=== PATIENT | female | born 1995 | race Caucasian/White ===

== ENCOUNTER 2017-08-17 14:03 | Inpatient (IN) ==
[2017-08-17] MEDS: LACTATED RINGERS 1,000 ML IV SCH ×2 (14:40→23:45)
[2017-08-17] MEDS ORDERED: ONDANSETRON 4 MG/2 ML VIAL IV PRN (15:12)
[2017-08-17] MEDS ORDERED: MEPERIDINE 50 MG/1 ML VIAL IV PRN (15:12)
[2017-08-17] MEDS ORDERED: LACTATED RINGERS 500 ML IV PRN (15:12)
[2017-08-17] MEDS ORDERED: BUTORPHANOL 2 MG/ML VIAL IV PRN (15:12)
[2017-08-17] MEDS ORDERED: OXYTOCIN/LR 20 UNIT/1,000 ML BAG IV SCH (15:30)
[2017-08-17] MEDS: CLINDAMYCIN INJ 900 MG in PREMIX 1 EACH IV SCH ×2 (15:36→23:49)
[2017-08-17 16:23] LABS: Basophils % 0.3 % (0.0-0.8); Eosinophils # 0.1 10*3/uL (0.0-0.87); Eosinophils % 0.7 % (0.00-10.9); Hematocrit 31.8 VOL% (35.7-47.0); Hemoglobin 10.5 GM/DL (12.0-16.0); Immature Granulocytes % 0.7 %; Immature Granulocytes Absolute 0.09 #; Lymphocytes # 1.4 10*3/uL (1.4-4.0); Lymphocytes % 10.6 % (21.3-54.2); Mean Corpuscular Hemoglobin 28 PG (27-34); Mean Corpuscular Volume 83.9 FL (87-102); Monocytes # 1.2 10*3/uL (0.11-0.8); Neutrophils # 10.6 10*3/uL (1.4-7.4); Neutrophils % 78.7 % (38.7-73.9); Platelet Count 142 T/CUMM (130-400); Red Blood Count 3.79 MC/CUMM (3.8-5.5); Red Cell Distribution Width 12.9 % (9.3-17.3); White Blood Count 13.5 T/CUMM (4-12)
[2017-08-17 16:39] LABS: Alanine Aminotransferase 12 U/L (13-56); Albumin 2.7 G/DL (3.4-5.0); Alkaline Phosphatase 158 U/L (45-117); Aspartate Amino Transferase 10 U/L (0-37); Bilirubin,Total < 0.39 MG/DL (0.2-1.0); Blood Urea Nitrogen 7 MG/DL (7-18); Calcium 8.4 MG/DL (8.5-10.1); Glucose 77 MG/DL (74-106); Osmolality,Calculated 269.8 MOS/KG (273-304); Potassium 3.7 MMOL/L (3.5-5.1); Sodium 137 MMOL/L (136-145); Total Protein 6.1 G/DL (6.4-8.3); Uric Acid 5.4 MG/DL (2.6-6.0)
[2017-08-17 19:23] LABS: INR 0.9; PT Patient Result 9.4 SECS; Partial Thromboplastin Time 28.7 SECS (0-40)
[2017-08-18] MEDS: ALUMINUM/MAGNES/SIMETH MAX STR 30 ML UDCUP PO PRN ×2 (00:16→06:51)
[2017-08-18] MEDS: CLINDAMYCIN INJ 900 MG in PREMIX 1 EACH IV SCH ×2 (06:57→19:08)
[2017-08-18] MEDS: LACTATED RINGERS 1,000 ML IV SCH (06:57)
[2017-08-18] MEDS ORDERED: hydrOXYzine HCL 25 MG/1 ML VIAL IM PRN (07:09)
[2017-08-18] MEDS ORDERED: PROMETHAZINE 25 MG/1 ML VIAL IM ONE (07:12)
[2017-08-18] MEDS ORDERED: CITRIC ACID/SODIUM CITRATE 30 ML UDCUP PO ONE (07:12)
[2017-08-18] MEDS ORDERED: FAMOTIDINE 20 MG/2 ML VIAL IV ONE (07:12)
[2017-08-18] MEDS ORDERED: ePHEDrine 50 MG/ML AMP IV PRN (07:13)
[2017-08-18] MEDS ORDERED: diphenhydrAMINE 50 MG/1 ML VIAL IV PRN ×2 (07:13)
[2017-08-18] MEDS ORDERED: fentaNYL 2 MCG/ROPIV 0.2% EPID 150 ML EPIDURAL SCH (07:14)
[2017-08-18] MEDS ORDERED: LACTATED RINGERS 1,000 ML IV ONE (07:14)
[2017-08-18 10:21] LABS: Apearance,Urine Slightly Hazy (Clear); Bilirubin,Urine Negative (Negative); Blood, Urine Small mg/dL (Negative); Glucose,Urine (UA) Negative (Negative); Ketones,Urine Negative (Negative); Mucus,Urine Occasional /LPF (Occasional); Nitrite,Urine Negative (Negative); Protein,Urine Negative; RBC,Urine 1 /HPF (0-4); Urine Color Straw (Yellow); Urine Specific Gravity 1.006 (1.001-1.035); Urine Urobilinogen < 2.0 EU/DL (0.2-1.0); WBC,Urine 1 /HPF (0-6)
[2017-08-18] MEDS ORDERED: LIDOCAINE 1% 50 ML VIAL ONE (10:38)
[2017-08-18] MEDS ORDERED: miSOPROStol 200 MCG TABLET ONE (10:38)
[2017-08-18] MEDS ORDERED: CARBOPROST TROMETHAMINE 250 MCG/ML AMP IM ONE ×2 (10:39→15:07)
[2017-08-18] MEDS ORDERED: METHYLERGONOVINE 0.2 MG/1 ML AMP ONE (10:39)
[2017-08-18] MEDS ORDERED: METHYLERGONOVINE 0.2 MG/1 ML AMP IM ONE (14:54)
[2017-08-18] MEDS ORDERED: OXYTOCIN/LR 20 UNIT/1,000 ML BAG IV ONE ×2 (14:56→15:27)
[2017-08-18] MEDS ORDERED: miSOPROStol 200 MCG TABLET RECTAL ONE (14:59)
[2017-08-18] MEDS ORDERED: oxyCODONE/ACETAMINOPHEN 5-325 MG TABLET PO PRN ×2 (15:27)
[2017-08-18] MEDS ORDERED: BISACODYL 10 MG SUPP RECTAL PRN (15:27)
[2017-08-18] MEDS ORDERED: ONDANSETRON 4 MG/2 ML VIAL IV PRN (15:27)
[2017-08-18] MEDS ORDERED: RHO(D) IMMUNE GLOBULIN 300 MCG SYRINGE IM ONE (15:27)
[2017-08-18] MEDS ORDERED: WITCH HAZEL PADS 100/JAR TOP PRN (15:27)
[2017-08-18] MEDS ORDERED: DIPH/TET/ACEL PERT BOOSTER VACCINE 0.5 ML VIAL IM ONE (15:27)
[2017-08-18] MEDS ORDERED: ACETAMINOPHEN 325 MG TABLET PO PRN (15:27)
[2017-08-18] MEDS ORDERED: HYDROCORTISONE 2.5% RECTAL CREAM 30 GM TUBE TOP PRN (15:27)
[2017-08-18] MEDS ORDERED: LANOLIN 50% CREAM 0.3 OZ TUBE TOP PRN (15:27)
[2017-08-18] MEDS ORDERED: MEASLES/MUMPS/RUBELLA VACCINE 0.5 ML VIAL SUBCUT ONE (15:27)
[2017-08-18] MEDS ORDERED: BENZOCAINE 20%/MENTHOL 0.5% SPRAY 56 GM CAN TOP PRN (15:27)
[2017-08-18] MEDS: IBUPROFEN 800 MG TABLET PO PRN (17:35)
[2017-08-18] MEDS ORDERED: METHYLERGONOVINE 0.2 MG TABLET PO PRN (18:00)
[2017-08-18] MEDS ORDERED: BUTORPHANOL 1 MG/ML VIAL IV ONE (18:05)
[2017-08-18] MEDS ORDERED: METHYLERGONOVINE 0.2 MG TABLET PO SCH (19:02)
[2017-08-18] MEDS ORDERED: PROMETHAZINE 25 MG/1 ML VIAL ONE (19:18)
[2017-08-18] MEDS: DOCUSATE SODIUM 100 MG CAPSULE PO SCH (19:59)
[2017-08-19 05:09] LABS: Basophils % 0.3 % (0.0-0.8); Eosinophils # 0.1 10*3/uL (0.0-0.87); Eosinophils % 0.5 % (0.00-10.9); Hematocrit 26.5 VOL% (35.7-47.0); Hemoglobin 8.7 GM/DL (12.0-16.0); Immature Granulocytes % 0.5 %; Immature Granulocytes Absolute 0.07 #; Lymphocytes # 1.5 10*3/uL (1.4-4.0); Mean Corpuscular HGB Conc 32.8 GM/DL (32-36); Mean Corpuscular Hemoglobin 27 PG (27-34); Mean Corpuscular Volume 83.3 FL (87-102); Mean Platelet Volume 14.2 FL (9.6-12.0); Monocytes # 1.4 10*3/uL (0.11-0.8); Monocytes % 9.7 % (1.7-12.7); Neutrophils # 11.5 10*3/uL (1.4-7.4); Platelet Count 103 T/CUMM (130-400); Red Blood Count 3.18 MC/CUMM (3.8-5.5); Red Cell Distribution Width 12.9 % (9.3-17.3); White Blood Count 14.5 T/CUMM (4-12)
[2017-08-19] MEDS: CLINDAMYCIN INJ 900 MG in PREMIX 1 EACH IV SCH (06:31)
[2017-08-19] MEDS ORDERED: INFLUENZA VIRUS VACCINE 0.5 ML SYRINGE IM ONE (08:00)
[2017-08-19] MEDS: DOCUSATE SODIUM 100 MG CAPSULE PO SCH ×2 (08:52→20:11)
[2017-08-19] MEDS: FERROUS SULFATE 325 MG TABLET PO SCH ×2 (08:52→20:11)
[2017-08-19] MEDS: IBUPROFEN 800 MG TABLET PO PRN (08:52)
[2017-08-20] MEDS: IBUPROFEN 800 MG TABLET PO PRN (02:58)
[2017-08-20] MEDS: FERROUS SULFATE 325 MG TABLET PO SCH (09:26)
[2017-08-20] MEDS: DOCUSATE SODIUM 100 MG CAPSULE PO SCH (09:26)
[2017-08-20] MEDS ORDERED: MEASLES/MUMPS/RUBELLA VACCINE 0.5 ML VIAL SUBCUT ONE (09:50)
[2017-08-20 10:34] VITALS: BP 127/68
== END 2017-08-20 10:45 | disposition home or self-care (01) | DRG 767 ==
LOC: N.LDOUT 14:03 → N.LD 14:05 → N.OB 08-18 20:15
PROVIDERS: ADMIT Obstetrics & Gynecology; ATTEND Obstetrics & Gynecology

== ENCOUNTER 2019-05-06 06:39 | Inpatient (IN) ==
[2019-05-06] MEDS: LACTATED RINGERS 1,000 ML IV SCH ×2 (07:22→14:58)
[2019-05-06] MEDS ORDERED: ONDANSETRON 4 MG/2 ML VIAL IV PRN ×2 (07:43→21:03)
[2019-05-06] MEDS ORDERED: MEPERIDINE 50 MG/1 ML VIAL IV PRN (07:43)
[2019-05-06] MEDS ORDERED: BUTORPHANOL 2 MG/ML VIAL IV PRN (07:43)
[2019-05-06 08:08] LABS: Basophils % 0.3 % (0.0-0.8); Eosinophils # 0.3 10*3/uL (0.0-0.87); Eosinophils % 2.4 % (0.00-10.9); Hematocrit 34.4 VOL% (35.7-47.0); Hemoglobin 10.3 GM/DL (12.0-16.0); Immature Granulocytes % 0.9 %; Lymphocytes # 2.3 10*3/uL (1.4-4.0); Lymphocytes % 20.5 % (21.3-54.2); Mean Corpuscular HGB Conc 29.9 GM/DL (32-36); Mean Corpuscular Volume 77.5 FL (87-102); Mean Platelet Volume 12.9 FL (9.6-12.0); Neutrophils % 66.9 % (38.7-73.9); Platelet Count 149 T/CUMM (130-400); Red Blood Count 4.44 MC/CUMM (3.8-5.5); Red Cell Distribution Width 17.8 % (9.3-17.3)
[2019-05-06 08:31] LABS: Hypochromasia 1+; Platelet Estimate Adequate
[2019-05-06] MEDS: OXYTOCIN/LR 20 UNIT/1,000 ML BAG IV SCH ×2 (08:31→20:43)
[2019-05-06] MEDS: CLINDAMYCIN INJ 900 MG in PREMIX 1 EACH IV SCH ×2 (08:36→17:45)
[2019-05-06] MEDS ORDERED: NALOXONE 0.4 MG/ML VIAL IV PRN (13:44)
[2019-05-06] MEDS ORDERED: diphenhydrAMINE 50 MG/1 ML VIAL IV PRN ×2 (13:44)
[2019-05-06] MEDS ORDERED: LACTATED RINGERS 1,000 ML IV ONE (13:44)
[2019-05-06] MEDS ORDERED: ePHEDrine 50 MG/ML AMP IV PRN (13:44)
[2019-05-06] MEDS ORDERED: FAMOTIDINE 20 MG/2 ML VIAL IV ONE (13:50)
[2019-05-06] MEDS ORDERED: CITRIC ACID/SODIUM CITRATE 30 ML UDCUP PO ONE (13:50)
[2019-05-06] MEDS ORDERED: fentaNYL 2 MCG/ROPIV 0.2% EPID 100 ML EPIDURAL SCH (14:00)
[2019-05-06 16:23] LABS: Alanine Aminotransferase 9 U/L (13-56); Albumin 2.7 G/DL (3.4-5.0); Alkaline Phosphatase 142 U/L (45-117); Aspartate Amino Transferase 11 U/L (0-37); Bilirubin,Total < 0.39 MG/DL (0.2-1.0); Blood Urea Nitrogen 8 MG/DL (7-18); Calcium 8.2 MG/DL (8.5-10.1); Glucose 73 MG/DL (74-106); Osmolality,Calculated 271.7 MOS/KG (273-304); Total Protein 6.5 G/DL (6.4-8.3)
[2019-05-06 16:26] LABS: Apearance,Urine CLEAR (Clear); Bilirubin,Urine Negative (Negative); Blood, Urine Negative (Negative); Glucose,Urine (UA) Negative (Negative); Ketones,Urine 20 mg/dL (Negative); Mucus,Urine Occasional /LPF (Occasional); Nitrite,Urine Negative (Negative); Protein,Urine Negative; RBC,Urine 3 /HPF (0-4); Squamous Epithelial Cell,Urine Occasional /HPF (0-10); Urine Color Yellow (Yellow); Urine Specific Gravity 1.011 (1.001-1.035); Urine Urobilinogen < 2.0 EU/DL (<2.0); WBC,Urine 1 /HPF (0-6)
[2019-05-06] MEDS ORDERED: miSOPROStol 200 MCG TABLET ONE (17:39)
[2019-05-06] MEDS ORDERED: CARBOPROST TROMETHAMINE 250 MCG/ML AMP IM ONE (17:40)
[2019-05-06] MEDS ORDERED: METHYLERGONOVINE 0.2 MG/1 ML AMP ONE (17:40)
[2019-05-06] MEDS ORDERED: ACETAMINOPHEN 325 MG TABLET PO ONE (18:12)
[2019-05-06] MEDS ORDERED: WITCH HAZEL PADS 100/JAR TOP PRN (21:03)
[2019-05-06] MEDS ORDERED: RHO(D) IMMUNE GLOBULIN 300 MCG SYRINGE IM ONE (21:03)
[2019-05-06] MEDS ORDERED: BISACODYL 10 MG SUPP RECTAL PRN (21:03)
[2019-05-06] MEDS ORDERED: DIPH/TET/ACEL PERT BOOSTER VACCINE 0.5 ML VIAL IM ONE (21:03)
[2019-05-06] MEDS ORDERED: OXYTOCIN/LR 20 UNIT/1,000 ML BAG IV ONE (21:03)
[2019-05-06] MEDS ORDERED: HYDROCORTISONE 2.5% RECTAL CREAM 30 GM TUBE TOP PRN (21:03)
[2019-05-06] MEDS ORDERED: ACETAMINOPHEN 325 MG TABLET PO PRN (21:03)
[2019-05-06] MEDS ORDERED: MEASLES/MUMPS/RUBELLA VACCINE 0.5 ML VIAL SUBCUT ONE (21:03)
[2019-05-06] MEDS ORDERED: LANOLIN 50% CREAM 0.3 OZ TUBE TOP PRN (21:03)
[2019-05-06] MEDS ORDERED: oxyCODONE/ACETAMINOPHEN 5-325 MG TABLET PO PRN ×2 (21:03)
[2019-05-06] MEDS ORDERED: BENZOCAINE 20%/MENTHOL 0.5% SPRAY 56 GM CAN TOP PRN (21:03)
[2019-05-07 05:44] LABS: Basophils % 0.2 % (0.0-0.8); Eosinophils # 0.2 10*3/uL (0.0-0.87); Eosinophils % 1.3 % (0.00-10.9); Hematocrit 28.8 VOL% (35.7-47.0); Hemoglobin 8.9 GM/DL (12.0-16.0); Immature Granulocytes % 0.6 %; Immature Granulocytes Absolute 0.07 #; Lymphocytes # 1.9 10*3/uL (1.4-4.0); Lymphocytes % 16.1 % (21.3-54.2); Mean Corpuscular HGB Conc 30.9 GM/DL (32-36); Mean Platelet Volume 13.3 FL (9.6-12.0); Neutrophils % 72.8 % (38.7-73.9); Platelet Count 130 T/CUMM (130-400); Red Blood Count 3.79 MC/CUMM (3.8-5.5); Red Cell Distribution Width 17.7 % (9.3-17.3); White Blood Count 11.6 T/CUMM (4-12)
[2019-05-07 06:06] LABS: Anisocytosis 1+; Ovalocytes Few; Platelet Estimate Adequate
[2019-05-07] MEDS: IBUPROFEN 800 MG TABLET PO PRN ×2 (08:09→21:29)
[2019-05-07] MEDS: DOCUSATE SODIUM 100 MG CAPSULE PO SCH ×2 (10:27→21:29)
[2019-05-08 07:20] VITALS: BP 109/65
[2019-05-08] MEDS: IBUPROFEN 800 MG TABLET PO PRN (09:20)
[2019-05-08] MEDS: DOCUSATE SODIUM 100 MG CAPSULE PO SCH (09:21)
== END 2019-05-08 12:05 | disposition home or self-care (01) | DRG 807 ==
LOC: N.LDOUT 06:39 → N.LD 06:46 → N.OB 22:45
PROVIDERS: ADMIT Obstetrics & Gynecology; ATTEND Obstetrics & Gynecology